=== PATIENT | male | born 1965 ===

== ENCOUNTER 2025-03-30 06:10 | Day surgery (SDC) | payer OTHER, SELFPAY ==
[2025-03-30 13:30] VITALS: BMI 24.7
[2025-03-30 13:31] VITALS: BP 162/108
[2025-03-30 15:17] VITALS: BP 124/91
[2025-03-30 15:30] VITALS: BP 120/87
[2025-03-30 15:45] VITALS: BP 134/85
== END 2025-03-30 16:00 | disposition home or self-care (01) ==
LOC: SDS 06:10
PROVIDERS: ATTENDING PHYSICIAN Internal Medicine Gastroenterology
DX: K83.8 Other specified diseases of biliary tract (principal); K86.9 Disease of pancreas, unspecified
CPT/HCPCS: 43237